=== PATIENT | male | born 1995 | race Caucasian/White ===

== ENCOUNTER 2016-09-16 12:04 | Emergency (ER) | payer SELFPAY ==
[2016-09-16 12:20] VITALS: BP 141/78
[2016-09-16] MEDS ORDERED: TETRACAINE 0.5% ONE (14:48)
[2016-09-16] MEDS ORDERED: FUL-GLO OP ONE (14:48)
[2016-09-16] MEDS ORDERED: BSS ONE (14:48)
[2016-09-16] MEDS ORDERED: BSS 1 DROPS, TETRACAINE 0.5% 1 DROPS, FUL-GLO 1 MG OS ONE (15:00)
--- NOTE | 2016-09-16 15:23 | Emergency Department Report ---
[facility] Chief Complaint: Eye Problems Stated Complaint: PINK EYE Time Seen by Provider: 09/16/16 14:36 Duration: 5 Days Side: Right Severity: moderate Symptoms: Yes Eye Itching, Yes Eye Redness, Yes Eye Pain, Yes Blurred Vision, No Mucous Drainage, No Purulent Drainage, No Preceding URI, No H/O Allergic Rhinitis, No Contact Lens Use, No Trauma, No Fever, No Headache ED Review of Systems ROS: Stated complaint: PINK EYE Other details as noted in HPI Constitutional: denies: chills, fever Eyes: eye pain, eye discharge (clear). denies: vision change ENT: denies: ear pain, throat pain Respiratory: denies: cough, shortness of breath, wheezing Cardiovascular: denies: chest pain, palpitations Endocrine: no symptoms reported Gastrointestinal: denies: abdominal pain, nausea, diarrhea Genitourinary: denies: urgency, dysuria Musculoskeletal: denies: back pain, joint swelling, arthralgia Skin: denies: rash, lesions Neurological: denies: headache, weakness, paresthesias Psychiatric: denies: anxiety, depression Hematological/Lymphatic: denies: easy bleeding, easy bruising ED Past Medical Hx - Past Medical History Previous Medical History?: No - Surgical History Past Surgical History?: No - Social History Smoking Status: Never Smoker Substance Use Type: Alcohol, Prescribed - Medications Home Medications: Home Medications Medication Instructions Recorded Confirmed Last Taken Type Polymyxin B Sulf/Trimethoprim 1 DAILY 09/16/16 09/16/16 History Tetrahydrz/Dext 70/Peg 400/Pvp 1 - 2 drop OP TID #15 ml 09/16/16 Unknown Rx [Eye Drops Advanced Relief] [facility] Exam - Exam General: Vital signs noted. No distress. Alert and acting appropriately. Eye Exam: Left Injection, Both EOMI, Neither Chemosis, Neither Abnormal Pupil HEENT: No Nasal Congestion, No Pharyngeal Erythema Remainder of HEENT: Normal Lungs: Yes Clear Lung Sounds, Yes Good Air Exchange, No Wheezes, No Stridor, No Cough, No Nasal Flaring, No Retractions, No Use of Accessory Muscles ED Course Vital Signs 09/16/16 12:16 Temperature 98.4 F Pulse Rate 87 Respiratory 20 Rate Blood Pressure 141/78 O2 Sat by Pulse 100 Oximetry ED Medical Decision Making - Medical Decision Making 21yo presents with right eye conjunctivitis ED course: Visual acuity test done both eyes, OS, OD on normal - see report Contrast patient and continue use and polymycin drops for eyes. Discussed with patient to use medication as prescribed Discussed the patient to follow up with primary care physician in a week. Vital signs are normal patient is in no acute distress. He verbally states she understands and will comply to follow instructions given. Critical care attestation.: If time is entered above; I have spent that time in minutes in the direct care of this critically ill patient, excluding procedure time. ED Disposition Clinical Impression: Conjunctivitis due to adenovirus, right eye Disposition: DISCHARGED TO HOME OR SELFCARE Is pt being admited?: No Does the pt Need Aspirin: No Condition: Stable Instructions: Conjunctivitis (ED), Eye Foreign Body (ED) Additional Instructions: Continue to take your eyedrops polymycin as described Follow-up with primary care physician and referred Prescriptions: Tetrahydrz/Dext 70/Peg 400/Pvp [Eye Drops Advanced Relief] 1 - 2 drop OP TID # 15 ml Referrals: PRIMARY CAREMD [Primary Care Provider] - 3-5 Days IRA HARDING MD [Referring] - 3-5 Days [facility] [Outside] - 3-5 Days [facility] [Outside] - 3-5 Days [facility] [Outside] - 3-5 Days Forms: Work/School Release Form(ED) Time of Disposition: 15:57
== END 2016-09-16 16:10 | disposition home or self-care (01) ==
LOC: ED 12:04
DX: B30.1 Conjunctivitis due to adenovirus (principal)
CPT/HCPCS: 99283

== ENCOUNTER 2017-03-03 19:11 | Emergency (ER) | payer SELFPAY ==
[2017-03-03 19:44] VITALS: BP 122/70
--- NOTE | 2017-03-03 22:32 | Emergency Department Report ---
- General Chief Complaint: Upper Respiratory Infection Stated Complaint: POSS SINUS INFECTION Time Seen by Provider: 03/03/17 22:23 Source: patient Mode of arrival: Ambulatory Limitations: No Limitations - History of Present Illness Initial Comments: This is a 21-year-old male nontoxic, well nourished in appearance, no acute signs of distress presents to the ED complaining of cough, facial sinus pain, rhinorrhea, congestion, and headache1 week. Patient he has been working around all and believes he developed these symptoms after that. Patient denies any direct contact with mole. patient denies any fever, chills, stiff neck, headache, nausea, vomiting, chest pain, shortness of breath, numbness or tingling. Patient denies thunderclap headache or worst headache ever. She stated headache is only at the frontal sinus region. Denies any sick contact or hemoptysis. Denies any allergies or past medical history. MD Complaint: cough, sore throat, rhinorrhea, nasal congestion, sinus pain -: Gradual, week(s) (1) Severity: mild Severity scale (0 -10): 6 Quality: aching Consistency: constant Improves With: nothing Worsens With: nothing Associated Symptoms: rhinorrhea, nasal congestion, sore throat, cough, other ( frontal sinus pain). denies: fever, chills, myalgias, diaphoresis, headache, stiff neck, chest pain, shortness of breath, abdominal pain, nausea, vomiting, diarrhea, dysuria, rash, confusion, right sweats, weight loss, epistaxis, hoarseness, ear pain Treatments Prior to Arrival: none - Related Data Home Medications Medication Instructions Recorded Confirmed Last Taken Polymyxin B Sulf/Trimethoprim 1 DAILY 09/16/16 09/16/16 Previous Rx's Medication Instructions Recorded Last Taken Type Tetrahydrz/Dext 70/Peg 400/Pvp 1 - 2 drop OP TID #15 ml 09/16/16 Unknown Rx [Eye Drops Advanced Relief] Amoxicillin/K Clav Tab [Augmentin 1 tab PO Q12HR #20 tab 03/03/17 Unknown Rx 875 mg] Ibuprofen [Motrin 600 MG tab] 600 mg PO Q8H PRN #30 tablet 03/03/17 Unknown Rx Allergies Allergy/AdvReac Type Severity Reaction Status Date / Time No Known Allergies Allergy Unverified 09/16/16 12:14 ED Review of Systems ROS: Stated complaint: POSS SINUS INFECTION Other details as noted in HPI Constitutional: denies: chills, fever Eyes: denies: eye pain, eye discharge, vision change ENT: throat pain. denies: ear pain Respiratory: cough. denies: shortness of breath, wheezing Cardiovascular: denies: chest pain, palpitations Endocrine: no symptoms reported Gastrointestinal: denies: abdominal pain, nausea, diarrhea Genitourinary: denies: urgency, dysuria Musculoskeletal: denies: back pain, joint swelling, arthralgia Skin: denies: rash, lesions Neurological: denies: headache, weakness, paresthesias Psychiatric: denies: anxiety, depression Hematological/Lymphatic: denies: easy bleeding, easy bruising ED Past Medical Hx - Past Medical History Previous Medical History?: No - Surgical History Past Surgical History?: No - Social History Smoking Status: Former Smoker Substance Use Type: None - Medications Home Medications: Home Medications Medication Instructions Recorded Confirmed Last Taken Type Polymyxin B Sulf/Trimethoprim 1 DAILY 09/16/16 09/16/16 History Tetrahydrz/Dext 70/Peg 400/Pvp 1 - 2 drop OP TID #15 ml 09/16/16 Unknown Rx [Eye Drops Advanced Relief] Amoxicillin/K Clav Tab [Augmentin 1 tab PO Q12HR #20 tab 03/03/17 Unknown Rx 875 mg] Ibuprofen [Motrin 600 MG tab] 600 mg PO Q8H PRN #30 tablet 03/03/17 Unknown Rx ED Physical Exam - General Limitations: No Limitations General appearance: alert, in no apparent distress - Head Head exam: Present: atraumatic, normocephalic, normal inspection - Eye Eye exam: Present: normal appearance, PERRL, EOMI. Absent: scleral icterus, conjunctival injection, nystagmus, periorbital swelling, periorbital tenderness Pupils: Present: normal accommodation - ENT ENT exam: Present: mucous membranes moist, TM's normal bilaterally, normal external ear exam - Expanded ENT Exam Expanded Ear exam: Present: normal external inspection Mouth exam: Present: normal external inspection, tongue normal. Absent: drooling, trismus, muffled voice, tongue elevation, laceration Teeth exam: Present: normal inspection Throat exam: Positive: tonsillar erythema, tonsillomegaly (2+), tonsillar exudate. Negative: R peritonsillar mass, L peritonsillar mass - Neck Neck exam: Present: normal inspection, full ROM. Absent: tenderness, meningismus, lymphadenopathy, thyromegaly - Respiratory Respiratory exam: Present: normal lung sounds bilaterally. Absent: respiratory distress, wheezes, rales, rhonchi, stridor, chest wall tenderness, accessory muscle use, decreased breath sounds, prolonged expiratory - Cardiovascular Cardiovascular Exam: Present: regular rate, normal rhythm, normal heart sounds. Absent: bradycardia, tachycardia, irregular rhythm, systolic murmur, diastolic murmur, rubs, gallop - GI/Abdominal GI/Abdominal exam: Present: soft, normal bowel sounds. Absent: distended, tenderness, guarding, rebound, rigid, diminished bowel sounds - Rectal Rectal exam: Present: deferred - Extremities Exam Extremities exam: Present: normal inspection, full ROM, normal capillary refill. Absent: tenderness, pedal edema, joint swelling, calf tenderness - Back Exam Back exam: Present: normal inspection, full ROM. Absent: tenderness, CVA tenderness (R), CVA tenderness (L), muscle spasm, paraspinal tenderness, vertebral tenderness, rash noted - Neurological Exam Neurological exam: Present: alert, oriented X3, CN II-XII intact, normal gait, reflexes normal - Psychiatric Psychiatric exam: Present: normal affect, normal mood - Skin Skin exam: Present: warm, dry, intact, normal color. Absent: rash - Other Other exam information: Frontal sinus tenderness upon palpation. ED Course Vital Signs 03/03/17 03/03/17 19:43 20:39 Temperature 98.4 F 98.4 F Pulse Rate 74 74 Respiratory 16 16 Rate Blood Pressure 122/70 Blood Pressure 122/70 [Right] O2 Sat by Pulse 100 100 Oximetry - Reevaluation(s) Reevaluation #1: 03/03/17 22:30 Patient is speaking in full sentences with no signs of distress noted. ED Medical Decision Making - Medical Decision Making 21-year-old male that presents with sinusitis and tonsillar exudate. Patient was examined by myself and patient is stable. Patient will be treated with Augmentin and ibuprofen. Patient was instructed to follow-up with a primary care doctor in 3-5 days or if symptoms worsen and continue return to emergency room as soon as possible possible. Patient is hemodynamically stable with stable vital signs. At time time of discharge, the patient does not seem toxic or ill in appearance. No acute signs of distress noted. Patient agrees to discharge treatment plan of care. No further questions noted by the patient. Critical care attestation.: If time is entered above; I have spent that time in minutes in the direct care of this critically ill patient, excluding procedure time. ED Disposition Clinical Impression: Tonsillitis with exudate Sinusitis Qualifiers: Sinusitis location: frontal Chronicity: acute Recurrence: non-recurrent Qualified Code(s): J01.10 - Acute frontal sinusitis, unspecified Disposition: TO HOME OR SELFCARE Is pt being admited?: No Does the pt Need Aspirin: No Condition: Stable Instructions: Sinusitis (ED), Amoxicillin/Clavulanate Potassium (By mouth), Tonsillitis (ED) Additional Instructions: Follow-up with a primary care doctor in 3-5 days or if symptoms worsen and continue return to emergency room as soon as possible possible. Prescriptions: Amoxicillin/K Clav Tab [Augmentin 875 mg] 1 tab PO Q12HR #20 tab Ibuprofen [Motrin 600 MG tab] 600 mg PO Q8H PRN #30 tablet PRN Reason: Pain Referrals: PRIMARY CAREMD [Primary Care Provider] - 3-5 Days SHAYNA SHAW MD [Staff Physician] - 3-5 Days [facility] [Outside] - 3-5 Days [facility] [Outside] - 3-5 Days Forms: Work/School Release Form(ED)
== END 2017-03-03 22:54 | disposition home or self-care (01) ==
LOC: ED 19:11
DX: J03.90 Acute tonsillitis, unspecified (principal); J01.10 Acute frontal sinusitis, unspecified; Z87.891 Personal history of nicotine dependence
CPT/HCPCS: 99282

== ENCOUNTER 2018-01-01 23:29 | Emergency (ER) | payer OTHER ==
[2018-01-02 00:11] VITALS: BP 148/77
--- NOTE | 2018-01-02 00:40 | XRay Report ---
FINAL REPORT EXAM: XR KNEE 3V RT HISTORY: Chronic right knee pain TECHNIQUE: Three views of the right knee were obtained. FINDINGS: All 3 compartments of fairly well maintained. There is no evidence of fracture or joint effusion. IMPRESSION: Within normal limits.
[2018-01-02] MEDS ORDERED: TYLENOL PO ONE (03:15)
[2018-01-02] MEDS ORDERED: MOTRIN PO ONE (03:15)
--- NOTE | 2018-01-02 03:20 | Emergency Department Report ---
ED General Adult HPI - General Chief complaint: Extremity Injury, Lower Stated complaint: RT KNEE INJURY/WORKMANS COMP Time Seen by Provider: 01/02/18 03:10 Source: patient, RN notes reviewed Mode of arrival: Ambulatory Limitations: No Limitations - History of Present Illness Initial comments: This is a 22-year-old gentleman who is not known to this provider previously, who denies significant past medical history who presents to the ER with complaint of anterior knee Pain. He reports a work-related accident where he banged his knee on a hard surface. His pain is achy, increases with palpation, decreases with rest, and decreased with position. His pain also decreases when he wraps it up. He denies other injuries and complaints., -: Sudden Location: right, lower extremity Radiation: non-radiation Quality: aching Consistency: intermittent Improves with: other Worsens with: other Associated Symptoms: denies other symptoms - Related Data Home Medications Medication Instructions Recorded Confirmed Last Taken Polymyxin B Sulf/Trimethoprim 1 DAILY 09/16/16 09/16/16 Previous Rx's Medication Instructions Recorded Last Taken Type Tetrahydrz/Dext 70/Peg 400/Pvp 1 - 2 drop OP TID #15 ml 09/16/16 Unknown Rx [Eye Drops Advanced Relief] Amoxicillin/K Clav Tab [Augmentin 1 tab PO Q12HR #20 tab 03/03/17 Unknown Rx 875 mg] Ibuprofen [Motrin 600 MG tab] 600 mg PO Q8H PRN #30 tablet 03/03/17 Unknown Rx Acetaminophen [Tylenol Arthritis] 650 mg PO Q6HR PRN #30 tablet.er 01/02/18 Unknown Rx Ibuprofen [Motrin] 600 mg PO Q8H PRN #30 tablet 01/02/18 Unknown Rx Allergies Allergy/AdvReac Type Severity Reaction Status Date / Time No Known Allergies Allergy Unverified 09/16/16 12:14 ED Review of Systems ROS: Stated complaint: RT KNEE INJURY/WORKMANS COMP Other details as noted in HPI Constitutional: denies: fever Cardiovascular: denies: chest pain Gastrointestinal: denies: abdominal pain Musculoskeletal: arthralgia, myalgia. denies: back pain Neurological: denies: weakness, numbness, confusion ED Past Medical Hx - Past Medical History Previous Medical History?: No - Surgical History Past Surgical History?: No - Social History Smoking Status: Never Smoker Substance Use Type: None - Medications Home Medications: Home Medications Medication Instructions Recorded Confirmed Last Taken Type Polymyxin B Sulf/Trimethoprim 1 DAILY 09/16/16 09/16/16 History Tetrahydrz/Dext 70/Peg 400/Pvp 1 - 2 drop OP TID #15 ml 09/16/16 Unknown Rx [Eye Drops Advanced Relief] Amoxicillin/K Clav Tab [Augmentin 1 tab PO Q12HR #20 tab 03/03/17 Unknown Rx 875 mg] Ibuprofen [Motrin 600 MG tab] 600 mg PO Q8H PRN #30 tablet 03/03/17 Unknown Rx Acetaminophen [Tylenol Arthritis] 650 mg PO Q6HR PRN #30 tablet.er 01/02/18 Unknown Rx Ibuprofen [Motrin] 600 mg PO Q8H PRN #30 tablet 01/02/18 Unknown Rx ED Physical Exam - General Limitations: No Limitations General appearance: alert, in no apparent distress - Head Head exam: Present: atraumatic, normocephalic - Eye Eye exam: Present: normal appearance, EOMI. Absent: nystagmus - ENT ENT exam: Present: normal exam, normal orophraynx, mucous membranes moist, normal external ear exam - Neck Neck exam: Present: normal inspection, full ROM. Absent: tenderness, meningismus - Respiratory Respiratory exam: Present: normal lung sounds bilaterally. Absent: respiratory distress, accessory muscle use - Cardiovascular Cardiovascular Exam: Present: regular rate, normal rhythm, normal heart sounds. Absent: bradycardia, tachycardia, irregular rhythm, systolic murmur, diastolic murmur, rubs, gallop - GI/Abdominal GI/Abdominal exam: Present: soft. Absent: distended, tenderness, rebound, rigid , pulsatile mass - Rectal Rectal exam: Present: deferred - Extremities Exam Extremities exam: Present: normal inspection, full ROM, normal capillary refill , other (there is no long bony tenderness. There is right anterior knee tenderness. 2+ pulses noted in the bilateral upper extremities. Compartments are soft. The pelvis is stable. Negative anterior drawer test. Negative posterior drawer test. No deformity with valgus or varus stress to the right knee. Walks with a steady gait.). Absent: pedal edema, joint swelling, calf tenderness - Back Exam Back exam: Present: normal inspection, full ROM. Absent: tenderness, CVA tenderness (R), paraspinal tenderness, vertebral tenderness - Neurological Exam Neurological exam: Present: alert, oriented X3, CN II-XII intact, normal gait, other (Extraocular movements intact. Tongue midline. No facial droop. Facial sensation intact to light touch in the V1, V2, V3 distribution bilaterally. 5 and 5 strength in 4 extremities.. Sensation is intact to light touch in 4 extremities.). Absent: motor sensory deficit - Psychiatric Psychiatric exam: Present: normal affect, normal mood - Skin Skin exam: Present: warm, dry, intact, normal color. Absent: rash ED Course Vital Signs 01/02/18 00:09 Temperature 98.7 F Pulse Rate 82 Respiratory 17 Rate Blood Pressure 148/77 O2 Sat by Pulse 97 Oximetry ED Medical Decision Making - Radiology Data Radiology results: report reviewed, image reviewed X-ray of the knee is negative for acute disease. Vital Signs 01/02/18 00:09 Temperature 98.7 F Pulse Rate 82 Respiratory 17 Rate Blood Pressure 148/77 O2 Sat by Pulse 97 Oximetry - Medical Decision Making Differential diagnosis, including not limited to: Sprain, strain, fracture, dislocation, contusion Assessment and plan: 22-year-old young healthy gentleman with minor blunt trauma to right knee, neurovascularly intact, no clinical evidence of compartment syndrome, walks with a steady gait, no evidence of fracture or dislocation on x-ray. There does not appear to be an emergent condition at this time and patient is suitable to follow up with outpatient primary care/occupational medicine. Critical care attestation.: If time is entered above; I have spent that time in minutes in the direct care of this critically ill patient, excluding procedure time. ED Disposition Clinical Impression: Right knee pain Disposition: DC-01 TO HOME OR SELFCARE Is pt being admited?: No Does the pt Need Aspirin: No Condition: Stable Instructions: Arthralgia (ED) Additional Instructions: Rest, and avoid heavy lifting. Avoid strenuous physical activities. Take pain medications as needed/directed. Follow up with With the physician designated by your respective workplace for work-related injuries, Worker's Compensation. Return to the ER right away with new pain, worsened pain, migration of pain, projectile vomiting, change in mental status, confusion, inability to tolerate liquid feeds. Referrals: PRIMARY CARE, [Primary Care Provider] - 3-5 Days PAVEL BAKER MD [Staff Physician] - 3-5 Days Forms: Work/School Release Form(ED)
== END 2018-01-02 03:39 | disposition home or self-care (01) ==
LOC: ED 23:29
DX: M25.561 Pain in right knee (principal)
CPT/HCPCS: 99283